=== PATIENT | male | born 1985 | race Caucasian/White ===

== ENCOUNTER 2018-01-24 05:45 | Inpatient (IN) | payer OTHER ==
[2018-01-24] MEDS ORDERED: ceFAZolin 2 GM/DEXTROSE 100 ML IV ONE (06:10)
[2018-01-24] MEDS ORDERED: GABAPENTIN 300 MG CAP PO ONE (06:10)
[2018-01-24] MEDS ORDERED: ACETAMINOPHEN 500 MG TAB PO ONE (06:10)
[2018-01-24] MEDS ORDERED: LR 1,000 ML IV ONE (06:13)
[2018-01-24] MEDS ORDERED: LIDOCAINE 1% 2 ML INJ ID PRN (06:13)
--- NOTE | 2018-01-24 06:35 | PDHPUP ---
History & Physical Update H&P update statement: This history and physical update is based on an assessment of the patient which was completed after admission or registration (within 24 hours), but prior to the surgery/procedure. H&P update: H&P reviewed & patient examined, no change in patient's condition since H&P completed
[2018-01-24] MEDS ORDERED: SUCCINYLCHOLINE CHLORIDE 200 MG/10 ML SYR IVP ONE (06:42)
[2018-01-24] MEDS ORDERED: fentaNYL 250 MCG/5 ML INJ ONE (06:42)
[2018-01-24] MEDS ORDERED: REMIFENTANIL HCL 2 MG VIAL ONE (06:42)
[2018-01-24] MEDS ORDERED: PROPOFOL 200 MG/20 ML VIAL ONE (06:43)
[2018-01-24] MEDS ORDERED: PROPOFOL/EMULSION 500 MG/50 ML BOTTLE IV ONE ×3 (06:43→09:46)
[2018-01-24] MEDS ORDERED: MIDAZOLAM 2 MG/2 ML VIAL IVP ONE (06:57)
[2018-01-24] MEDS ORDERED: BUPIVACAINE 0.25% 30 ML SDV ONE (07:07)
[2018-01-24] MEDS ORDERED: CHLORHEXIDINE GLUC HIBICLENS 118 ML BTL TP ONE (07:07)
[2018-01-24] MEDS ORDERED: THROMBIN (BOVINE) 5,000 UNIT VIAL TP ONE (07:07)
[2018-01-24] MEDS ORDERED: EPINEPHrine 1 MG/ML INJ ONE (07:08)
[2018-01-24] MEDS ORDERED: BACITRACIN 50,000 UNITS/10 ML SYR IRR ONE (07:08)
--- NOTE | 2018-01-24 07:38 | PDANEPAE ---
ANE History of Present Illness lumbar intradural tumor causing pain ANE Past Medical History - Cardiovascular History Hx Hypertension: No Hx Arrhythmias: No Hx Chest Pain: No Hx Coronary Artery / Peripheral Vascular Disease: No Hx CHF / Valvular Disease: No Hx Palpitations: No - Pulmonary History Hx COPD: No Hx Asthma/Reactive Airway Disease: Yes Hx Recent Upper Respiratory Infection: No Hx Oxygen in Use at Home: No Hx Sleep Apnea: No Sleep Apnea Screening Result - Last Documented: Negative Pulmonary History Comment: EXERCISE AND ALLERGY INDUCED ASTHMA, mild, rescue inhaler 1-2 times per month - Neurologic History Hx Cerebrovascular Accident: No Hx Seizures: No Hx Dementia: No Neurologic History Comment: CURRENT INTRADURAL TUMOR- DISCOMFORT IN LOWER BACK AND RADIATING PAIN FROM MID-BACK DOWN LLE - Endocrine History Hx Diabetes: No - Renal History Hx Renal Disorders: No - Liver History Hx Hepatic Disorders: No - Neurological & Psychiatric Hx Hx Neurological and Psychiatric Disorders: No - Cancer History Hx Cancer: No - Congenital Disorder History Hx Congenital Disorders: No - GI History GERD: mild (with certain foods) Hx Gastrointestinal Disorders: No Gastrointestinal History Comment: CHRONIC CONSTIPATION - Chronic Pain History Chronic Pain: Yes - Surgical History Prior Surgeries: WISDOM TOOTH EXTRACTION ANE Review of Systems Review of Systems: - Exercise capacity METS (RN): 4 METS ANE Patient History - Allergies Allergies/Adverse Reactions: cashew nut Allergy (Verified 01/10/18 12:18) pistachio nut Allergy (Verified 01/10/18 12:18) salmon oil Allergy (Verified 01/10/18 12:18) - Home Medications Home Medications: Albuterol [Proventil Inhaler HFA (*)] 1 - 2 puffs IH DAILY 01/10/18 [Last Taken Unknown] Calcium Carbonate [Calcium] 1,000 mg PO DAILY 01/10/18 [Last Taken Unknown] Cholecalciferol Vit D3 [Vitamin D3 (*)] 1,000 units PO DAILY 01/10/18 [Last Taken Unknown] Docusate Sodium [Colace 100 MG (*)] 100 mg PO DAILY 01/10/18 [Last Taken Unknown ] Herbals/Supplements -Info Only 1 ea PO DAILY 01/10/18 [Last Taken Unknown] [place]-3 Fatty Acids [Fish Oil 1000 mg (*)] 1,000 mg PO DAILY 01/10/18 [Last Taken Unknown] Polyethylene Glycol 3350 [Miralax 17 gm (*)] 17 gm PO DAILY 01/10/18 [Last Taken Unknown] - NPO status NPO Since - Liquids (Date): 01/23/18 NPO Since - Liquids (Time): 22:00 NPO Since - Solids (Date): 01/23/18 NPO Since - Solids (Time): 22:00 - Smoking Hx Smoking Status: Never smoked - Family Anes Hx Family Hx Anesthesia Complications: NA ANE Labs/Vital Signs - Vital Signs Blood Pressure: 104/65 Heart Rate: 69 Respiratory Rate: 16 O2 Sat (%): 99 Height: 180.34 cm Weight: 77.111 kg ANE Physical Exam - Airway Mallampati Score: Class 1 Mouth exam: normal dental/mouth exam - Pulmonary Pulmonary: no respiratory distress - Cardiovascular Cardiovascular: regular rate and rhythym - ASA Status ASA Status: II ANE Anesthesia Plan Lines/Monitors: additional IV
[2018-01-24] MEDS ORDERED: PHENYLEPHRINE HCL 100 MCG/ML SYR IVP PRN (08:17)
[2018-01-24] MEDS ORDERED: MEPERIDINE 25 MG/0.5 ML AMP IVP PRN (08:17)
[2018-01-24] MEDS ORDERED: ALBUTEROL 3 ML DEYVIAL IH PRN (08:17)
[2018-01-24] MEDS ORDERED: PROMETHAZINE HCL 25 MG/ML INJ IVP PRN (08:17)
[2018-01-24] MEDS ORDERED: HYDROCODONE/APAP 5/325 TAB PO PRN ×2 (08:17→09:46)
[2018-01-24] MEDS ORDERED: LABETALOL HCL 5 MG/ML 20 ML MDV IVP PRN (08:17)
[2018-01-24] MEDS ORDERED: NALOXONE HCL 0.4 MG/ML INJ IVP PRN ×2 (08:17→09:46)
[2018-01-24] MEDS ORDERED: HYDROmorphONE/DILAUDID 1 MG/ML INJ IVP PRN ×2 (08:17→09:46)
[2018-01-24] MEDS ORDERED: ONDANSETRON 4 MG/2 ML VIAL IVP PRN ×2 (08:17→09:46)
[2018-01-24] MEDS ORDERED: LR 500 ML IV PRN (08:17)
[2018-01-24] MEDS ORDERED: fentaNYL 100 MCG/2 ML INJ IVP PRN (08:17)
[2018-01-24] MEDS ORDERED: DEXAMETHASONE 4 MG/ML VIAL ONE (08:20)
[2018-01-24] MEDS ORDERED: ONDANSETRON 4 MG/2 ML VIAL ONE (08:20)
[2018-01-24] MEDS ORDERED: METOCLOPRAMIDE 10 MG/2 ML VIAL ONE (08:20)
[2018-01-24] MEDS ORDERED: KETOROLAC 30 MG/1 ML SDV ONE (08:20)
[2018-01-24] MEDS ORDERED: BISACODYL 10 MG SUPP PR PRN (09:46)
[2018-01-24] MEDS ORDERED: diphenhydrAMINE 25 MG CAP PO PRN (09:46)
[2018-01-24] MEDS ORDERED: ONDANSETRON DISINTEGRATING 4 MG TAB PO PRN (09:46)
[2018-01-24] MEDS ORDERED: MAGNESIUM HYDROXIDE 30 ML UDCUP PO PRN (09:46)
[2018-01-24] MEDS ORDERED: oxyCODONE IR 5 MG TAB PO PRN (09:46)
[2018-01-24] MEDS ORDERED: morphINE PCA 30 MG/30 ML PCA IV PRN (09:46)
[2018-01-24] MEDS ORDERED: ceFAZolin 1 GM VIAL ONE (10:36)
[2018-01-24] MEDS ORDERED: HYDROmorphONE/DILAUDID 2 MG/ML INJ ONE (13:23)
--- NOTE | 2018-01-24 14:15 | POSTOPPROG ---
Post Op Note Date of Operation: 01/24/18 Surgeon: Frank Darling Cam Specialist: Naresh Renteria Anesthesiologist: Yenifer Anesthesia: GET(General Endotracheal), Local (Specify) Pre-op Diagnosis: L2/3 and L3/4 intradural, extramedulary mass Post-op Diagnosis: as above Indication: mass-resection and ID Procedure: L2/3 and L3/4 laminectomy with resection of mass Findings: mass-sent to pathology Inf/Abcess present in the surg proc area at time of surgery?: No Depth: Deep Incisional (Fascial) EBL: 100-500 Total fluids administered: see anesthesia record Complications: none
--- NOTE | 2018-01-24 14:18 | SOAPPROG ---
SOAP Progress Note Assessment/Plan: Post Op Visit: S: Awake and alert. NAD. Pt with expected lower back pain O: AFVSS/PERRLA/EOMI no droop CN 2-12 grossly intact +lt touch 5/5 BUE/BLE = CDI A/P: 32 yo male s/p L2/3 and L3/4 laminectomy for resection of intradural/ extramedulary mass -orders in place -call with any questions or concerns -pt understands and agrees -flat for at least 24 hrs -take medications as directed 01/24/18 14:15 Objective: Vital Signs Temp Pulse Resp BP Pulse Ox 36.7 C 69 16 104/65 99 01/24/18 07:00 01/24/18 07:38 01/24/18 07:38 01/24/18 07:38 01/24/18 07:38 ICD10 Worksheet Patient Problems: Problems Problem Status Onset Lumbar spine tumor Acute S/P laminectomy Acute - ICD10 Problem Qualifiers (1) Lumbar spine tumor (2) S/P laminectomy
[2018-01-24] MEDS ORDERED: fentaNYL 100 MCG/2 ML INJ ONE (14:19)
[2018-01-24] MEDS ORDERED: DIAZEPAM 5 MG/ML 1 ML SYR ONE (14:20)
[2018-01-24] MEDS: DIAZEPAM 5 MG/ML 1 ML SYR IVP PRN ×2 (14:20→14:27)
--- NOTE | 2018-01-24 14:32 | PDMN ---
Medical Necessity Medical necessity: [facility] [place] [place]: S830 lumbar laminectomy A-1 day: INPT for complex, multi level , with removal of mass OP: L2/3, L3/4 laminectomy with resection of mass per surg fax CPT [id number], [id number] Auth A [id number] approved
[2018-01-24] MEDS ORDERED: ACETAMINOPHEN 500 MG TAB ONE (15:07)
[2018-01-24] MEDS ORDERED: oxyCODONE IR 5 MG TAB ONE (15:07)
[2018-01-24] MEDS: ACETAMINOPHEN 500 MG TAB PO SCH ×2 (15:16→20:55)
[2018-01-24] MEDS ORDERED: ceFAZolin 2 GM/DEXTROSE 100 ML IV SCH (15:30)
[2018-01-24] MEDS ORDERED: HYDROmorphone HCL 0.5 MG/0.5 ML SYR IVP PRN (16:30)
[2018-01-24] MEDS: ALBUTEROL 60 PUFFS/8 GM MDI IH SCH ×2 (17:07→17:09)
--- NOTE | 2018-01-24 17:28 | GOP ---
DATE OF OPERATION: 01/24/2018 SURGEON: Aron Darling MD NEUROSURGEON: Aron Darling MD TIP INSERTER: Horace Renteria PA-C PREOPERATIVE DIAGNOSIS: Large intradural extramedullary mass at the L2-3 level with left leg pain. POSTOPERATIVE DIAGNOSIS: Large intradural extramedullary mass at the L2-3 level with left leg pain. 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 FINDINGS: ESTIMATED BLOOD LOSS: 200 cc. INDICATIONS: The patient is a 32-year-old gentleman who is having left leg pain that was persistent and an MRI demonstrated a large mass in the lumbar cistern behind the L2 and L3 vertebral bodies. It spanned from the mid vertebral body of L2 down to the L3-4 disk and completely filled the canal. He did not have weakness on exam. I suggested resection. He sought Dr. Horace Almendarez at the [place], who suggested resection. The risk of CSF leak, nerve injury, damage to the cauda equina, bowel or b ladder symptoms, discomfort, incomplete resection, and possible need for adjuvant treatment was discu ssed. He knew there was a small chance this was a malignant tumor, but it was our suspicion it was b enign. He had an MRI of the cervical and thoracic spine and it demonstrated no evidence of disease i n the other locations. DESCRIPTION OF PROCEDURE: The patient was taken to the operating room, placed in supine position. G eneral anesthesia was begun. He was flipped prone onto the Cristhian frame. Care was taken to pad all points of contact. His back was sterilely prepped and draped in usual fashion. We made a midline incision above the L2-3 vertebral bodies. The subcutaneous tissue was dissected us ing Bovie cautery down to the fascia and a subperiosteal dissection was made down the L2 and L3 tony a. Only the rostral L4 lamina was exposed. We then shot localizing x-rays and performed bilateral l aminectomies at L2-3. We initially removed only partial L2, preserving the rostral lip of L2. We us ed intraoperative ultrasound guidance and we had exposure of the tumor all the way through its inferi or margin down to the L3-4 disk; however, there was evidence of a tail of tumor possibly and a nerve fascicle going more rostral and I elected to remove all of L2 so that we could thoroughly remove the entire tumor itself. We ultrasounded again and demonstrated that we had adequate exposure on both th e rostral and caudal margin of the tumor. We then opened the dura in a separate fashion from the arachnoid. The dura was opened from the top o f the L2 lamina down to the L3-4 disk space. We then opened the arachnoid as a separate layer in the midline and folded this over onto the dura and used small Weck clips to attach the arachnoid to the dura. The dura was sutured with 4-0 Nurolon to the edges of our exposure cavity. We could appreciat e a large intradural mass filling the entire spinal canal surrounded by the nerve roots of the cauda equina. There was a large abnormal appearing nerve fascicle going into the tumor caudally. Rostrall y, we could not appreciate which fascicle went into the tumor at least initially. We began inferiorly where we began working around the mass from caudal to rostral and dissecting all of the nerve roots of the cauda equina away from the mass. There were some arachnoid bands tying the se nerves to the tumor itself and these were divided, and all of the nerves were completely preserved . After we had the nerve circumferentially, we then transected the lower fascicle coming o ut of the tumor itself. It was indeed a nerve fascicle. It did not appear to be the filum terminali s, although it certainly was possible it was the filum. We stimulated it and got no stimulation at l ow levels. We did get some spread of stimulation at 1.5 milliamps to the S1 root, but then, we actua lly went and directly stimulated the motor rootlets and them stimulated at 0.1 milliamps. These were more ventral to the tumor. The tumor was dorsal to these. We then lifted the tumor en bloc up out of the spinal canal and as we did so, we freed it from the un derlying more ventral roots dividing the arachnoid, and we could not still quite delineate its rostra l attachments. I then went and coagulated the outer border of the tumor rostrally shrinking it, but I did not enter the tumor itself. We preserved the tumor and its capsule, and after doing so, we cou ld see a large abnormal structure going into the tumor itself, and we stimulated this, and there was no stimulation. We coagulated and divided it. There was also a large artery and vein associated wit h this structure that was descending from the conus down into the tumor. Now that we had better visu alization, these did not appear to be vessels. They simply went into the tumor and disapp eared. We did not appreciate them caudally. We coagulated these and divided these. As we did so, t he tumor changed color and became dusky and necrotic appearing. We coagulated this fascicle and rese cted about a centimeter of fascicle rostrally, as well as a centimeter caudally to get good margins o n the tumor itself. We could not go any further rostrally with our resection of the abnormal fascicl e. We did not see any additional tumor, but the finer nerves of the cauda equina actually commingled with this rostrally and we could really could not get any more than a centimeter of the fascicle ros trally removed. Now that we freed the rostral and caudal fascicle, we dissected some additional arachnoid bands betwe en the tumor and the ventral roots at the more rostral margin of the tumor itself and these were rela tively easily freed, and we then delivered the tumor en bloc and sent it to pathology as a single spe cimen for both frozen and permanent sections. The frozen was consistent with more benign tumor. It had a myxoid qualities and it was unclear whether it was a schwannoma. 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 There was no evidence of any residual tumor. The nerves of the cauda equina were complete ly intact/Motor and somatosensory-evoked potentials were stable throughout surgery. We irrigated with large amounts of antibiotic saline and then closed the dura using a running Hemashi eld 5-0 Prolene suture and it was a completely watertight closure. We closed both the arachnoid and the dura, and Valsalva'd and there was no evidence of any leakage. We had achieved meticulous hemost asis. We then closed the wound with interrupted Vicryl sutures in multiple layers and Steri-Strips w ere applied to the skin. The patient was reversed from anesthesia, extubated, and transferred to rec overy room in stable condition. COMPLICATIONS: None. /[id number]/MODL
[2018-01-24] MEDS: NS 1,000 ML IV SCH (18:07)
[2018-01-24] MEDS: GABAPENTIN 300 MG CAP PO SCH ×2 (18:07→20:55)
[2018-01-24] MEDS: POLYETHYLENE GLYCOL 3350 17 GM PKT PO SCH (18:50)
[2018-01-24] MEDS: CHOLECALCIFEROL VIT D3 1,000 UNITS TAB PO SCH (18:50)
[2018-01-24] MEDS: CALCIUM CARBONATE 500 MG TAB PO SCH (18:50)
[2018-01-24] MEDS: DOCUSATE SODIUM 100 MG CAP PO SCH (18:50)
[2018-01-24] MEDS: ceFAZolin 2 GM/DEXTROSE 100 ML IV SCH (20:54)
[2018-01-24] MEDS: FAMOTIDINE 20 MG TAB PO SCH (20:55)
[2018-01-25] MEDS: ceFAZolin 2 GM/DEXTROSE 100 ML IV SCH (03:48)
[2018-01-25] MEDS: ACETAMINOPHEN 500 MG TAB PO SCH ×3 (05:57→21:01)
[2018-01-25] MEDS: GABAPENTIN 300 MG CAP PO SCH ×3 (05:59→21:01)
--- NOTE | 2018-01-25 07:53 | NEUSURGPN ---
Assessment/Plan: Assessment: 32 yo male s/p L2/3 and L3/4 laminectomy for resection of intradural /extramedullary mass POD #1 Plan: -s/p L2-L4 lami with tumor debulking: path pending, pt states she has some expected lower back pain -continue flat for 24 hrs -orders in place -eating/drinking and voiding. Passing gas. Pt states no change in sensation in groin/legs. -PT/OT on hold until can get up -call with any questions or concerns -pt understands and agrees -likely try and start to sit up later today -take medications as directed Subjective: Awake and alert. NAD. Pt with some expected lower back pain. No steven/neck/chest /abd or gu complaints. No f/c/n/v/d. Eating/drinking and voiding fine. Objective: AFVSS/PERRLA/EOMI no droop CN 2-12 grossly intact +lt touch 5/5 BUE/BLE = CDI Neuro Check Frequency: per routine Urinary Catheter in Place: No - Physician Discussed Patient with .: Phong Patient Seen by : Phong Neurosurgery Physical Exam - Vitals, I&O, Labs I and O 01/24/18 01/25/18 01/26/18 05:59 05:59 05:59 Intake Total 4290 Output Total 900 750 Balance 3390 -750 Weight 77.111 kg Intake: Oral (ml) 1000 IV Intake (ml) 3290 Output: Urine (ml) 700 750 Catheter 175 Urinal 525 750 Estimated Blood Loss (ml) 200 Other: Intake Quantity Yes Sufficient Number of Voids Urinal 1 Vital Signs Temp Pulse Resp BP Pulse Ox 36.6 C 66 16 98/59 L 97 01/25/18 07:23 01/25/18 07:23 01/25/18 07:23 01/25/18 07:23 01/25/18 07:23 ICD10 Worksheet Patient Problems: Problems Problem Status Onset Lumbar spine tumor Acute S/P laminectomy Acute - ICD10 Problem Qualifiers (1) Lumbar spine tumor (2) S/P laminectomy
[2018-01-25] MEDS: NS 1,000 ML IV SCH (08:38)
--- NOTE | 2018-01-25 09:45 | ASMTCMCOM ---
CM Note CM Note Notes: Patient is POD #1 L2/3 and L3/4 lami with tumor debulking. He is doing well with some expected back pain. Patient states that he will be discharging to his parents home. He anticipates PT 6 weeks post-operatively and will f/u with his surgeon. He is to be HOB flat for 24 hours, then PT and OT will see. I anticipate an independent discharge. Case Management available if this changes. Date Signed: 01/25/2018 09:45 AM Electronically Signed By:Soledad Olivera RN
[2018-01-25] MEDS: FAMOTIDINE 20 MG TAB PO SCH ×2 (09:50→21:02)
[2018-01-25] MEDS: CALCIUM CARBONATE 500 MG TAB PO SCH (09:53)
[2018-01-25] MEDS: CHOLECALCIFEROL VIT D3 1,000 UNITS TAB PO SCH (09:53)
[2018-01-25] MEDS: DOCUSATE SODIUM 100 MG CAP PO SCH (09:54)
[2018-01-25] MEDS: POLYETHYLENE GLYCOL 3350 17 GM PKT PO SCH (09:54)
[2018-01-25] MEDS: ALBUTEROL 60 PUFFS/8 GM MDI IH SCH (10:25)
[2018-01-25] MEDS ORDERED: GADOBUTROL 10 ML VIAL IVP ONE (11:20)
[2018-01-25] MEDS: METHOCARBAMOL 750 MG TAB PO PRN (16:11)
[2018-01-26] MEDS: METHOCARBAMOL 750 MG TAB PO PRN ×2 (06:04→14:40)
[2018-01-26] MEDS: ACETAMINOPHEN 500 MG TAB PO SCH ×2 (06:04→14:38)
[2018-01-26] MEDS: GABAPENTIN 300 MG CAP PO SCH ×2 (06:04→14:39)
--- NOTE | 2018-01-26 07:06 | NEUSURGPN ---
Date of Surgery: 01/24/18 Post Op Day: 2 Assessment/Plan: Assessment: 32 yo male s/p L2/3 and L3/4 laminectomy for resection of intradural /extramedullary mass POD #2 Plan: -s/p L2-L4 lami with tumor debulking: path pending, pt states she has some expected lower back pain -pt denies any headaches when upright -post op lumbar MRI shows complete resection of tumor, final path pending -pt reports improvement in left leg pain since surgery -PT/OT eval and treat, likely dispo tomorrow -Discussed patient with Dr Darling Please call neurosurgery with questions/concerns Subjective: Doing well, denies headache Objective: AxO x3 CN 2-12 grossly intact sensation intact to light touch BLE 5/5 BUE/BLE = Dressing CDI Neuro Check Frequency: per routine Urinary Catheter in Place: No - Physician Discussed Patient with : Phong Neurosurgery Physical Exam - Vitals, I&O, Labs I and O 01/25/18 01/26/18 01/27/18 05:59 05:59 05:59 Intake Total 4290 2250 1000 Output Total 900 4075 1500 Balance 3390 -1825 -500 Weight 77.111 kg Intake: Oral (ml) 1000 2250 1000 IV Intake (ml) 3290 Output: Urine (ml) 700 4075 1500 Catheter 175 Urinal 525 4075 1500 Estimated Blood Loss (ml) 200 Other: Intake Quantity Yes Yes Sufficient Number of Voids Urinal 1 1 2 Vital Signs Temp Pulse Resp BP Pulse Ox 37.2 C 85 14 101/62 95 01/26/18 04:00 01/26/18 04:00 01/26/18 04:00 01/26/18 04:00 01/26/18 04:00 ICD10 Worksheet Patient Problems: Problems Problem Status Onset Lumbar spine tumor Acute S/P laminectomy Acute
[2018-01-26] MEDS: ALBUTEROL 60 PUFFS/8 GM MDI IH SCH (08:15)
[2018-01-26] MEDS: CHOLECALCIFEROL VIT D3 1,000 UNITS TAB PO SCH (10:04)
[2018-01-26] MEDS: DOCUSATE SODIUM 100 MG CAP PO SCH (10:05)
[2018-01-26] MEDS: CALCIUM CARBONATE 500 MG TAB PO SCH (10:05)
[2018-01-26] MEDS: FAMOTIDINE 20 MG TAB PO SCH (10:05)
[2018-01-26] MEDS: POLYETHYLENE GLYCOL 3350 17 GM PKT PO SCH (10:05)
[2018-01-26 12:05] VITALS: BP 90/65
--- NOTE | 2018-01-26 15:37 | ASMTCMCOM ---
CM Note CM Note Notes: Pt medically stable for d/c home with parents support. PT rec outpatient which pt has been participating in, OT rec home. No CM d/c needs identified. Date Signed: 01/26/2018 03:32 PM Electronically Signed By:MARIA R Mota
--- NOTE | 2018-01-26 15:37 | ASMTLACE ---
LACE Length of stay for Answers: 3 days current admission Acuity / Level of Answers: Yes Care: Did the patient have an inpatient admission? Comorbidities - select Answers: Opioid dependence all that apply / Chronic pain Other Notes: Asthma # of Emergency department Answers: 0 visits in the last 6 months Score: 11 Date Signed: 01/26/2018 03:29 PM Electronically Signed By:MARIA R Mota
[2018-01-27] MEDS ORDERED: ENOXAPARIN 40 MG/0.4 ML SYR SC SCH (09:00)
--- NOTE | 2018-01-30 10:11 | GDS ---
PRIMARY DIAGNOSIS: Large intradural extramedullary mass at L2-3 level with left leg pain. OPERATION/PROCEDURE: An L2-3 complete laminectomy and resection of an intradural extramedullary neop lasm of the cauda equina at L2-3 with the use of microscope and intraoperative ultrasound guidance. This procedure occurred with Dr. Rudolph Darling on 01/24/2018, at [facility]. HOSPITAL COURSE: The patient is a 32-year-old gentleman who was having left leg pain that was persis tent. An MRI demonstrated a large mass in the lumbar cistern behind the L2 and L3 vertebral bodies. It spanned from the mid vertebral body of L2 down to the L3-4 disk and completely filled the canal. He did not have any weakness on exam and we suggested resection. He also had a second opinion from Dr. Horace Becerra at the [facility] who suggested resection as well. The risks of surgery were discus sed with the patient. He wanted to proceed. He understood these risks. He underwent the above-ment ioned procedure and he tolerated it well. He was admitted postoperatively. On postoperative day #1 on 01/25/2018, he underwent an L2 lumbar spine MRI which showed complete rese ction of the intradural mass. There was a postoperative gas and fluid collection noted, likely serom a, that extended from L2-L4. There was no evidence of dural defect or pseudomeningocele, however. Phani blanc worked with PT and OT, did quite well. He did not have any pain or numbness after surgery. Michelle arthur talked about worsening symptoms and when to call or return. On 01/26/2018, he met criteria and was discharged with medications, please see medication reconciliat ion form. His pathology was pending and will follow up on this once this is obtained. Denies any po stoperative headaches. He was able to ambulate well. He will follow up us likely in 2 weeks for rec heck and evaluation. CONSULTATION: None. COMPLICATIONS: None. DISCHARGE CONDITION: Stable and improved. DISCHARGE INSTRUCTIONS: Standard discharge instructions given to patient following laminectomy. We talked about no excessive bending or twisting. No heavy lifting. He will follow up with us likely i n 2 weeks for recheck and then likely at 2 months for recheck as well. He will call us or return if any problems or questions arise. /[id number]/MODL
== END 2018-01-26 16:26 | disposition home or self-care (01) | DRG 30 ==
LOC: F3N 05:45
PROVIDERS: ADMIT Neurological Surgery; ATTEND Neurological Surgery
PROC: 0ST20ZZ Resection of Lumbar Vertebral Disc, Open Approach (ICD-10-PCS; principal; 2018-01-24 07:30)
PROC: 00BY0ZX Excision of Lumbar Spinal Cord, Open Approach, Diagnostic (ICD-10-PCS; principal; 2018-01-24 07:30)
DX: D43.4 Neoplasm of uncertain behavior of spinal cord (principal)
CPT/HCPCS: 97116-GP; 97161-GP; 97166-GO; 97535-GO; A9585; J0171; J0330; J0690; J1100; J1170; J1885; J2250; J2405; J2704; J2765; J3010; J3360